=== PATIENT | male | born 1990 | race Caucasian/White ===

== ENCOUNTER 2024-01-25 10:21 | Emergency (ER) | payer OTHER ==
[~2024-01-25] VITALS: Ht 162.6 cm; Wt 72.6 kg
[2024-01-25 10:27] VITALS: BP 149/94; PULSE 92; RESP 18; TEMP 97.5; O2SAT 99
[2024-01-25] MEDS: KETOROLAC 30 MG/ML VIAL IM ONE (11:59)
[2024-01-25] MEDS: CYCLOBENZAPRINE 10 MG TAB PO ONE (12:00)
[2024-01-25] MEDS ORDERED: IBUP-2213 PO (12:25)
[2024-01-25] MEDS ORDERED: CYCL-711 PO (12:25)
[2024-01-25 12:40] VITALS: BP 135/66; PULSE 83; RESP 18; TEMP 97.5; O2SAT 98
== END 2024-01-25 12:40 | disposition home or self-care (01) ==
LOC: MED 10:21
DX: M51.26 Other intervertebral disc displacement, lumbar region (principal); M54.41 Lumbago with sciatica, right side; Z79.899 Other long term (current) drug therapy
CPT/HCPCS: 72131; 96372; 99285; J1885